=== PATIENT | female | born 1990 | race Two or more races ===

== ENCOUNTER 2016-07-08 18:43 | Emergency (ER) | payer SELFPAY ==
[~2016-07-08] VITALS: Ht 162.6 cm; Wt 58.0 kg
[2016-07-08] MEDS ORDERED: IBUPROFEN 400MG TABLET PO ONE (21:30)
[2016-07-08] MEDS ORDERED: KETOROLAC 60MG/2ML VIAL IM ONE (22:15)
[2016-07-08] MEDS ORDERED: HYDROCODONE/ACETAMINOPHEN 5/325MG TABLET PO ONE (22:30)
[2016-07-09 01:40] VITALS: BP 98/65
== END 2016-07-09 01:41 | disposition home or self-care (01) ==
LOC: ER 18:45
DX: S16.1XXA Strain of muscle, fascia and tendon at neck level, initial encounter (principal); V89.2XXA Person injured in unspecified motor-vehicle accident, traffic, initial encounter; Y93.89 Activity, other specified; Y92.89 Other specified places as the place of occurrence of the external cause; Y99.8 Other external cause status
CPT/HCPCS: 70450; 72125; 81025; 99284; Z7610